=== PATIENT | male | born 1985 | race African-American/Black ===

== ENCOUNTER 2022-03-22 00:19 | Emergency (ER) | payer MEDICAID, SELFPAY ==
[2022-03-22 00:46] VITALS: BP 153/83; PULSE 66; RESP 18; TEMP 37.2; O2SAT 98; BMI 24.0
[2022-03-22 03:19] VITALS: BP 132/84; PULSE 63; RESP 12; TEMP 36.8; O2SAT 97
--- NOTE | 2022-03-22 05:22 | ED.SKABFB ---
HPI - Skin/Abscess/Foreign Bdy General Chief complaint: Dental/Oral Stated complaint: Dental abscess Time Seen by Provider: 03/22/22 05:22 Source: patient Mode of arrival: ambulatory History of Present Illness HPI narrative: 36-year-old male without significant past medical history reports that he has had an infection on the roof of his mouth for 1 week but denies any swallowing or breathing issues. In the triage noted it is states that he has had difficulty swallowing, however this is related to the pressure exerted when he is making the motion as per the patient. He is a current smoker and denies having this infection on the roof of his mouth before in his life. Related Data Previous Rx's Medication Instructions Recorded amoxicillin 875 mg-potassium 1 tab PO Q12H 5 Days #10 tab 03/22/22 clavulanate 125 mg tablet Allergies Allergy/AdvReac Type Severity Reaction Status Date / Time No Known Allergies Allergy Verified 03/22/22 05:27 Review of Systems Review of Systems: Pertinent positives and negatives as stated in HPI 10 point review of systems is otherwise negative. [facility] Past Medical History Source: nursing notes reviewed Social History Social History Advance Directives: No Advance Directives Information Provided: No Physical Exam Vital Signs: Vital Signs: Last Vital Signs Temp 98.2 F 03/22/22 03:19 Pulse 63 03/22/22 03:19 Resp 12 03/22/22 03:19 BP 132/84 03/22/22 03:19 Pulse Ox 97 03/22/22 03:19 BMI result Body Mass Index 24.0 VITAL SIGNS: Reviewed. GENERAL: Well developed, well nourished, in no acute distress. HEAD: Normocephalic/atraumatic EYES: PERRLA, EOMI EARS: Ext canals without abnormality OROPHARYNX: no oral lesions noted, posterior pharynx clear but there is a 2 cm abscess on the roof of patient's mouth that with light pressure expresses some purulence material NECK: Supple, no adenopathy LUNGS: Normal breath sounds. No adventitious sounds or accessory muscle use. SpO2<97> CARDIOVASCULAR: Regular rate and rhythm without noted murmurs ABDOMEN: Soft, non-tender, non-distended with bowel sounds. NEUROLOGIC: Alert and oriented x 4. Strength and sensation to light touch were grossly intact x 4. Course Course Course Narrative: 36-year-old male with history and clinical presentation consistent with abscess that is draining located on the hard palate of the mouth. Although it is spontaneously draining patient will benefit from receiving medications, he received 1st dose here, patient also received combination analgesics and was instructed on saline gargles and told to follow-up with his primary care provider. Discharge Plan Discharge Clinical Impression: Abscess of mouth Patient Disposition: Home, Self-Care Instructions: Abscess (ED) Additional Instructions: 1. Recommend [id number] Tylenol/ibuprofen as needed for pain control. 2. Since this is currently draining recommend that you use your tongue to apply gentle pressure to the roof of the mouth to encourage pus removal. 3. Complete the entire course of antibiotics as you have been prescribed. 4. Recommend very warm saline gargles that you would make with warm tap water and table salt and gargle 3 to 4 times a day and then spit it out. 5. Please follow-up with your primary care provider in the next 2-3 days for re-evaluation further outpatient management. Return to the ER for worsening symptoms. Prescriptions: New amoxicillin-pot clavulanate 875-125 mg tablet 1 tab PO Q12H 5 Days Qty: 10 0RF
[2022-03-22] MEDS: Amoxicillin/Potassium Clav 875 MG TABLET PO (05:42)
[2022-03-22] MEDS: Ibuprofen 400 MG TABLET PO (05:42)
[2022-03-22] MEDS: Acetaminophen 325 MG TABLET 975 MG PO (05:43)
--- NOTE | 2022-03-22 05:46 | PC.NURSE ---
Medicated per Jan, reviewed discharge instructions. Pt verbalized understanding.
== END 2022-03-22 05:48 | disposition home or self-care (01) ==
PROVIDERS: Emergency Provider Student in an Organized Health Care Education/Training Program
DX: K12.2 Cellulitis and abscess of mouth (principal); F17.200 Nicotine dependence, unspecified, uncomplicated
CPT/HCPCS: 99283; 99284